=== PATIENT | female | born 1980 | race Two or more races ===

== ENCOUNTER 2018-01-10 15:37 | Emergency (ER) | payer MEDICAID ==
[~2018-01-10] VITALS: Ht 160 cm; Wt 52.2 kg
[2018-01-10 15:47] VITALS: BP 110/70
[2018-01-10] MEDS ORDERED: Methocarbamol 750mg tab ORAL ONE (17:30)
[2018-01-10 17:40] LABS: APPEARANCE,URINE CLEAR; BILIRUBIN, URINE NEGATIVE (NEGATIVE); COLOR,URINE PALE YELLOW; GLUCOSE, URINE (UA) NEGATIVE (NEGATIVE); KETONES,URINE NEGATIVE (NEGATIVE); LEUKOCYTE ESTERASE ,URINE NEGATIVE (NEGATIVE); NITRITE,URINE NEGATIVE (NEGATIVE); PH,URINE 8 (4.5-8.0); PROTEIN,URINE NEGATIVE (NEGATIVE); UROBILINOGEN,URINE NORMAL MG/DL (0.0-1.0)
[2018-01-10 18:00] VITALS: BP 110/70
[2018-01-10] MEDS ORDERED: Phenazopyridine 200mg tab ORAL ONE (18:15)
--- NOTE | 2018-01-10 18:16 | Emergency Room Report ---
History of Present Illness General Chief Complaint: Pain Source: Patient Present Illness HPI 37-year-old female presents to the emergency department complaining of 8 out of 10 in severity localized low back pain status post mechanical trip and fall 10 days ago when she landed directly on her back. Patient reports pain has been progressive. She reports exacerbation of her pain when she lifted a baby up into a car seat. Also reports exacerbation of pain with bending forward. She denies saddle anesthesia, LE paresthesias or urinary incontinence/retention. Patient does report dysuria and lower abdominal fullness with urgency. She denies hematuria, fevers, chills or . She denies hitting her head or LOC. Denies neck pain. Allergies: Coded Allergies: No Known Allergies (Unverified , 01/10/18) Patient History Past Medical History: see triage record Past Surgical History: none Pertinent Family History: none Last Menstrual Period: 12/29/17 Reviewed Nursing Documentation: PMH: Agreed; PSxH: Agreed Nursing Documentation-PMH Past Medical History: No Stated History Review of Systems All Other Systems: negative except mentioned in HPI Physical Exam Vital Signs Date Time Temp Pulse Resp B/P (MAP) Pulse Ox O2 Delivery O2 Flow Rate FiO2 01/10/18 15:47 98.2 72 18 110/70 100 Room Air Sp02 EP Interpretation: reviewed, normal General Appearance: alert, GCS 15, non-toxic, mild distress Head: normocephalic, atraumatic Eyes: bilateral eye normal inspection, bilateral eye PERRL ENT: hearing grossly normal, normal voice Neck: full range of motion Respiratory: lungs clear, normal breath sounds, speaking full sentences Cardiovascular #1: regular rate, rhythm Gastrointestinal: normal bowel sounds, non tender, soft, non-distended, no guarding Genitourinary: normal inspection, no CVA tenderness Musculoskeletal: back normal, gait/station normal, normal range of motion, tender - TTP to midline L-spine ( just above the sacrum) and Left paraspinal musculature ( mostly lateral than midline) no erythema, bruises, step-off of obvious deformity. Neurologic: alert, oriented x3, responsive, motor strength/tone normal, sensory intact, speech normal, grossly normal Psychiatric: judgement/insight normal Skin: normal color, no rash, warm/dry, well hydrated Lymphatic: no adenopathy Medical Decision Making PA Attestation Dr. Chamorro is my supervising Physician whom patient management has been discussed with. Diagnostic Impression: Primary Impression: Contusion of back Qualified Codes: S20.222A - Contusion of left back wall of thorax, initial encounter Additional Impressions: Back pain Qualified Codes: M54.5 - Low back pain Dysuria ER Course 37-year-old female presents to the emergency department complaining of 8 out of 10 in severity localized low back pain status post mechanical trip and fall 10 days ago when she landed directly on her back. Patient reports pain has been progressive. She reports exacerbation of her pain when she lifted a baby up into a car seat. Also reports exacerbation of pain with bending forward. She denies saddle anesthesia, LE paresthesias or urinary incontinence/retention. Patient does report dysuria and lower abdominal fullness with urgency. She denies hematuria, fevers, chills or . She denies hitting her head or LOC. Denies neck pain. Ddx considered but are not limited to Fracture, dislocation, contusion, Sprain/ Strain/Spasm, Epidural abscess, Neoplastic mets, UTI, renal calculi, just to name a few. Vital signs: are WNL, pt. is afebrile H&PE are most consistent with musculoskeletal injury will perform imaging to r/ o fractures/dislocations. ORDERS: - X-ray L-Spine 3 views - negative for fx, Dislocation, or significant soft tissue injury, per preliminary read in ED, and signed by SEPIDEH Apple, my supervising physician has reviewed, and agrees with my interpretation. - UA: no evidence of infection, 2-4 RBC's ED INTERVENTIONS: - Robaxin PO -Lidoderm TP -Pyridium -I do not identify an emergent condition at this time. With current presentation , pt. is stable for close outpatient follow up and conservative treatment. D/ w pt. to return promptly to ED with worsening or new symptoms.- Pt. verbalizes' understanding and agreement with proposed treatment plan. DISCHARGE: At this time pt. is stable for d/c to home. Will provide printed patient care instructions, and any necessary prescriptions. Care plan and follow up instructions have been discussed with the patient prior to discharge. Labs Test 01/10/18 16:35 Urine Color Pale yellow Urine Appearance Clear Urine pH 8 (4.5-8.0) Urine Specific [place] 1.015 (1.005-1.035) Urine Protein Negative (NEGATIVE) Urine Glucose (UA) Negative (NEGATIVE) Urine Ketones Negative (NEGATIVE) Urine Blood 1+ (NEGATIVE) Urine Nitrite Negative (NEGATIVE) Urine Bilirubin Negative (NEGATIVE) Urine Urobilinogen Normal MG/DL (0.0-1.0) Urine Leukocyte Esterase Negative (NEGATIVE) Urine RBC 2-4 /HPF (0 - 2) Urine WBC 0-2 /HPF (0 - 2) Urine Squamous Epithelial Cells Few /LPF (NONE/OCC) Urine Bacteria Few /HPF (NONE) Urine HCG, Qualitative Negative (NEGATIVE) Other X-Ray Diagnostic Results Other X-Ray Diagnostic Results : X-Ray ordered: Lumbar Spine # of Views/Limited Vs Complete: 3 View Indication: Pain EP Interpretation: Yes PA Xray: Interpretation reviewed, by supervising MD, and agrees with findings. Interpretation: no dislocation, no soft tissue swelling, no fractures Impression: No acute disease Electronically Signed by: Sara Apple PA-C Last Vital Signs Date Time Temp Pulse Resp B/P (MAP) Pulse Ox O2 Delivery O2 Flow Rate FiO2 01/10/18 15:47 98.2 72 18 110/70 100 Room Air Disposition: HOME, SELF-CARE Condition: Stable Scripts Ibuprofen* (MOTRIN*) 600 Mg Tablet 600 MG ORAL THREE TIMES A DAY, #20 TAB 0 Refills Prov: Sara Apple 01/10/18 Phenazopyridine Hcl* (PYRIDIUM*) 200 Mg Tablet 200 MG ORAL THREE TIMES A DAY, #9 TAB 0 Refills Prov: Sara Apple 01/10/18 Methocarbamol* (ROBAXIN-750*) 750 Mg Tablet 750 MG PO QID, #28 TAB 0 Refills Prov: Sara Apple 01/10/18 Referrals: NON PHYSICIAN (PCP) Departure Forms: Return to Work Return to Work Date: Jan 11, 2018 Work Restrictions: No Heavy Lifting Other Restrictions: Light Duty x 1 week. Return to Full Activity: Jan 18, 2018 Patient Instructions: Contusion, [id number], Dysuria Additional Instructions: Take medications as directed. Follow up with a Primary Care Provider in 3-5 days, even if your symptoms have resolved. --Please review list of primary care clinics, if you do not already have a primary care provider Return sooner to ED if new symptoms occur, or current symptoms become worse. Do not drink alcohol, drive, or operate heavy machinery while taking Robaxin ( Muscle Relaxers) as this may cause drowsiness. - Please note that this Emergency Department Report was dictated using [employer]enga[employer] oncologist technology software, occasionally this can lead to erroneous entry secondary to interpretation by the dictation equipment. Sara Apple Jan 10, 2018 18:16
[2018-01-10] MEDS ORDERED: IBUPROFEN600 MG ORAL (18:17)
[2018-01-10] MEDS ORDERED: ROBAXIN-750750 MG PO (18:17)
[2018-01-10] MEDS ORDERED: PHENAZOPYRIDIN200 MG ORAL (18:17)
--- NOTE | 2018-01-10 18:31 | Diagnostic Imaging Report ---
EXAM: XR Lumbar Spine, 2 or 3 Views CLINICAL HISTORY: PAIN TECHNIQUE: Frontal and lateral views of the lumbar spine. COMPARISON: No relevant prior studies available. FINDINGS: Vertebrae: Unremarkable. No acute fracture. Normal alignment. Disc spaces: No acute findings. No significant narrowing. Soft tissues: Unremarkable. IMPRESSION: Normal lumbar spine x-rays.
== END 2018-01-10 18:35 | disposition home or self-care (01) ==
LOC: EMR 18:01
DX: S20.222A Contusion of left back wall of thorax, initial encounter (principal); W01.0XXA Fall on same level from slipping, tripping and stumbling without subsequent striking against object, initial encounter; Y92.9 Unspecified place or not applicable; R30.0 Dysuria
CPT/HCPCS: 72020; 81003; 81025; 99283